=== PATIENT | male | born 1945 | race Caucasian/White ===

== ENCOUNTER → 2017-06-12 | Outpatient (CLI) | payer BC ==
[~2017-06-12] VITALS: Ht 193 cm; Wt 152.7 kg
[~2017-06-12] MED LIST: COUMADIN 5MG5 MG/TAB PO; COUMADIN 77.5 MG/TAB PO; COZAAR 50MG50 MG/TAB PO; DIOVAN; FLOMAX 0.40.4 MG/CAP PO; FOLIC ACID 40400 MCG PO; IRON PO; LASIX 40MG TABL40 MG PO; MICARDIS80 MG PO; NORVASC 10MG10 MG PO; ULTRAM 50MG TAB50 MG PO; VIT D PO; VITAMINC1000TA PO
[2017-06-12 12:08] VITALS: BP 149/90; PULSE 83
== END ==
LOC: COL.RAD 11:33
DX: M54.5 Low back pain (principal); G89.29 Other chronic pain
CPT/HCPCS: J3301

== ENCOUNTER → 2018-01-29 | Outpatient (CLI) | payer BC ==
[~2018-01-29] VITALS: Ht 193 cm; Wt 153.0 kg
[~2018-01-29] MED LIST changes: +FLEXERIL 1010 MG/TAB PO
[2018-01-29 13:47] VITALS: BP 154/79; PULSE 83
[2018-01-29 15:20] VITALS: BP 156/92; PULSE 80
== END ==
LOC: COL.RAD 13:15
DX: M54.5 Low back pain (principal); G89.29 Other chronic pain
CPT/HCPCS: J3301

== ENCOUNTER → 2018-06-17 | Outpatient (CLI) | payer BC | LOC: COL.RAD 11:27 | DX: I75.022 Atheroembolism of left lower extremity (principal); I74.3 Embolism and thrombosis of arteries of the lower extremities; Z96.643 Presence of artificial hip joint, bilateral; Z96.652 Presence of left artificial knee joint; Z98.890 Other specified postprocedural states | CPT/HCPCS: Q9967 ==

== ENCOUNTER 2018-07-26 06:29 | Day surgery (SDC) | payer BC ==
[~2018-07-26] VITALS: Ht 193 cm; Wt 163.1 kg
[~2018-07-26 06:29] MED LIST changes: -FOLIC ACID 40400 MCG PO; +FOLIC ACID800 MCG PO; -IRON PO; +IRON TABLETS325 MG PO; -VIT D PO; +VITAMIND3 5000 PO
[2018-07-26 07:22] VITALS: BP 134/79; PULSE 60; TEMP 97.8
[2018-07-26 07:24] LABS: HEMATOCRIT 42.7 % (42.0-52.0); HEMOGLOBIN 13.9 g/dl (13.5-18.0); MEAN CELL VOLUME 93 fl (80.0-100.0); MEAN CORPUSCULAR HEMOGLOBIN 30 pg (27.0-31.0); MEAN CORPUSCULAR HGB CONC 33 g/dl (33.0-37.0); MEAN PLATELET VOLUME 9.5 fl (7.4-10.4); PLATELET COUNT 205 K/mm3 (130-400); RED BLOOD COUNT 4.58 M/mm3 (4.20-5.60); REDCELL DISTRIBUTION WIDTH-CV 14.8 % (11.5-14.5)
[2018-07-26 07:32] LABS: INR 2.9 (0.8-3.0); PROTHROMBIN TIME 33.4 SECONDS (9.7-12.8)
[2018-07-26 07:38] LABS: CALCIUM 8.9 mg/dL (8.4-10.2); CREATININE, serum 1.7 mg/dL (0.66-1.25); POTASSIUM 4.5 mmol/L (3.4-5.0)
[2018-07-26] MEDS ORDERED: VITAMIN B COMPL1 SGL PO (07:49)
[2018-07-26] MEDS ORDERED: MASON NATURAL1200 MG PO (07:52)
[2018-07-26] MEDS ORDERED: ZYLOPRIM 300MG300 MG PO (07:55)
[2018-07-26] MEDS ORDERED: LASIX 40MG TABL40 MG PO (07:56)
[2018-07-26] MEDS ORDERED: BETAPACE 80MG80 MG PO (07:56)
[2018-07-26 08:45] VITALS: BP 121/74; PULSE 72
[2018-07-26 09:00] VITALS: BP 131/82; PULSE 74
[2018-07-26 09:15] VITALS: BP 126/75; PULSE 75
[2018-07-26 09:30] VITALS: BP 126/70; PULSE 78
[2018-07-26 09:45] VITALS: BP 136/78; PULSE 77
--- NOTE | 2018-07-26 10:00 | NUR ---
Discharge instructions given to pt.Pt verbalizes understanding.INT removed,catheter tip intact.
--- NOTE | 2018-07-26 10:11 | NUR ---
Pt escorted out by this nurse.
== END 2018-07-26 10:14 | disposition home or self-care (01) ==
LOC: COL.CAR 06:29
PROVIDERS: Internal Medicine Cardiovascular Disease
DX: I48.0 Paroxysmal atrial fibrillation (principal); I10 Essential (primary) hypertension; Z79.01 Long term (current) use of anticoagulants; Z79.899 Other long term (current) drug therapy; M10.9 Gout, unspecified; K21.9 Gastro-esophageal reflux disease without esophagitis; Z86.718 Personal history of other venous thrombosis and embolism; C44.90 Unspecified malignant neoplasm of skin, unspecified; E66.01 Morbid (severe) obesity due to excess calories; G47.33 Obstructive sleep apnea (adult) (pediatric); D69.6 Thrombocytopenia, unspecified; M43.07 Spondylolysis, lumbosacral region
CPT/HCPCS: J2704; J7120

== ENCOUNTER → 2020-06-14 | Outpatient (CLI) | payer BC ==
[~2020-06-14] VITALS: Ht 193 cm; Wt 150.6 kg
[~2020-06-14] MED LIST changes: +BETAPACE 80MG80 MG PO; +MASON NATURAL1200 MG PO; +VITAMIN B COMPL1 SGL PO; +ZYLOPRIM 300MG300 MG PO
[2020-06-14 13:33] VITALS: BP 156/80; PULSE 64
[2020-06-14 13:42] LABS: INR 1.2 (0.8-3.0); PROTHROMBIN TIME 13.1 SECONDS (9.7-12.8)
[2020-06-14 14:34] VITALS: BP 150/83; PULSE 62
== END ==
LOC: COL.RAD 13:08
PROVIDERS: Radiology Diagnostic Radiology
DX: M54.16 Radiculopathy, lumbar region (principal)
CPT/HCPCS: J3301

== ENCOUNTER 2020-12-06 12:45 | Outpatient (RCR) | payer BC ==
[2020-12-15] MEDS ORDERED: DOXYCYCLINE 10100 MG PO (08:54)
== END 2021-03-03 ==
LOC: WSPT
DX: M48.061 Spinal stenosis, lumbar region without neurogenic claudication (principal)

== ENCOUNTER 2020-12-13 16:11 | Inpatient (IN) | payer BC, MEDICARE ==
[~2020-12-13] VITALS: Ht 190.5 cm; Wt 145.5 kg
[2020-12-13 17:11] LABS: BASO # 0.1 (0.0-0.2); BASO % 0.4 % (0.0-2.0); EOS # 0.2 (0.0-0.7); GRAN # 9.6 (1.4-6.5); GRAN % 79.8 % (42.2-75.2); HEMATOCRIT 36.2 % (42.0-52.0); HEMOGLOBIN 12.1 g/dl (13.5-18.0); LYMPH # 0.8 (1.2-3.4); LYMPH % 6.9 % (20.0-51.0); MEAN CELL VOLUME 94 fl (80.0-100.0); MEAN CORPUSCULAR HEMOGLOBIN 32 pg (27.0-31.0); MEAN CORPUSCULAR HGB CONC 33 g/dl (33.0-37.0); MEAN PLATELET VOLUME 10.2 fl (7.4-10.4); MONO # 1.2 (0.1-0.6); PLATELET COUNT 252 K/mm3 (130-400); RED BLOOD COUNT 3.84 M/mm3 (4.20-5.60); REDCELL DISTRIBUTION WIDTH-CV 13.6 % (11.5-14.5)
[2020-12-13 17:23] LABS: ALBUMIN 3.6 gm/dL (3.5-5.0); BILIRUBIN,TOTAL 1.3 mg/dL (0.0-1.0); CALCIUM 8.7 mg/dL (8.4-10.2); CREATININE, serum 1.58 (0.66-1.25); POTASSIUM 4.8 mmol/L (3.4-5.0); TOTAL PROTEIN 7.6 gm/dL (6.4-8.2)
[2020-12-13 21:30] VITALS: BP 143/62; PULSE 63; TEMP 98.5
--- NOTE | 2020-12-13 22:00 | NUR ---
Vancomycin Initial Dosing Pharmacy Note Ordering provider: Howie Ledbetter MD 75 YO M Indication/duration: SSTI (5 DAYS) GOAL: 10-20 HX: NONE IDENTIFIED BMI:40.1 WT: 145.5 KG ADJBW: 109 KG SCR: 1.58 ADJBW ESTCRCL ~ 63 ML/MIN T 1/2 ~ 12H TMAX: 98.5 WBC: 12 LA: WNL CRP: 25.3 Micro - pending Rt foot XR reporting soft tissue swelling, without bone destruction Rt Knee XR reporting severe tricompartment osteoarthritis w/ joint effusion Pt received 1.5 gm (~10 mg/kg) x1 in ED on 12/13 @~1800. Due to suboptimal loading dose, will start maintenance dosing early, will initiate a maintenance dose of 1.5 gm q18h. Will monitor closely as pt is unlikely to follow population based kinetics and is at high risk for accumulation 2/2 elevated BMI. Will follow renal function, micro, and abx plan for need to adjust therapy. Thank you for this dosing consult!
--- NOTE | 2020-12-13 22:08 | NUR ---
Vancomycin Initial Dosing Pharmacy Note Ordering provider: Howie Ledbetter MD 75 yo M Indication/duration: SSTI (5 days) GOAL: 10-20 HX: NONE IDENTIFIED BMI: 40.1 WT: 145.5 KG ADJBW: 109 KG SCR: 1.58 ADJBW EST CRCL~ 63 ML/MIN T 1/2 ~ 12 H TMAX: 98.5 WBC: 12 LA:WNL CRP: 25.3 MICRO - PENDING R FOOT XR REPORTING SOFT TISSUE SWELLING, WITHOUT BONE DESTRUCTION R KNEE XR REPORTING SEVERE TRICOMPARTMENT OSTEOARTHRITIS W/JOINT EFFUSION PT RECEIVED 1.5 GM (~10 MG/KG) IN ED ON 12/13 @ ~1800. DUE TO SUB-OPTIMAL LOADING DOSE WILL START MAINTENANCE DOSE EARLY, WILL START A MAINTENANCE DOSE OF 1.5 GM Q18H. WILL FOLLOW CLOSELY PT UNLIKELY TO FOLLOW POPULATION BASED KINETICS AND AT HIGH RISK FOR ACCUMULATION 2/2 TO ELEVATED BMI. WILL FOLLOW RENAL FUCNTION, MICRO, AND CARE PLAN FOR NEED TO ADJUST THERAPY. THANK YOU FOR THIS DOSING CONSULT!
--- NOTE | 2020-12-13 23:25 | NUR ---
PATIENT WAS RECEIVED FROM ED ON A CART ON RA.ASSESSMENT DONE ,ORIENTATION DONE.DENIES PAIN.NO OTHER NEEDS AT THIS TIME.
[2020-12-13 23:41] VITALS: BP 135/62; PULSE 65; TEMP 98.4
[2020-12-14 04:24] VITALS: BP 136/60; PULSE 68; TEMP 98.1
--- NOTE | 2020-12-14 05:10 | NUR ---
PATIENT HAD A RESTFUL NIGHT.DENIES PAIN.NO OTHER NEEDS AT THIS TIME.
[2020-12-14 06:58] LABS: INR 1.3 (0.8-3.0); PROTHROMBIN TIME 14.7 SECONDS (9.7-12.8)
--- NOTE | 2020-12-14 07:15 | NUR ---
Irvin PAGE, notified of consult.
[2020-12-14 08:55] VITALS: BP 140/67; PULSE 67; TEMP 98.1
[2020-12-14 11:33] VITALS: BP 137/63; PULSE 63; TEMP 98.4
--- NOTE | 2020-12-14 11:56 | NUR ---
Patient alert and oriented, answers questions appropriately. See assessment. BLE with 2-3+ edema noted, pulses weak but palpable. Slight redness noted to RLE. ROM active to BLE. FWB. Leg exercises reviewed with patient. Uses cane for ambulation. No c/o at this time.
--- NOTE | 2020-12-14 12:50 | NUR ---
First visit from the clinical data coordinator. prayed with patient. No other needs right now.
[2020-12-14 16:55] VITALS: BP 148/66; PULSE 72; TEMP 98.7
--- NOTE | 2020-12-14 17:13 | NUR ---
Chili Pepper Grinder met with patient to discuss discharge planning. Patient's , Dior (ph#[phone]) is at bedside. Patient [place] with his and sees Dr. Carrington for primary care. Patient obtains medications from [facility] in with no difficulties. Patient has a cane, walker and CPAP at home. Patient states he is very independent and plans to return home upon discharge. SW reviewed PT recommendation for Home Health. Patient declined both HH services and outpatient therapy at this time. Patient does not have Advance Directives and was not interested in completing DPOA-HC at this time. Discharge Plan: Home
[2020-12-14 20:12] VITALS: BP 150/63; PULSE 94; TEMP 97.6
[2020-12-14 23:49] VITALS: BP 124/54; PULSE 63; TEMP 97.6
--- NOTE | 2020-12-14 23:59 | NUR ---
Patient assessed around 2129. Alert and oriented x 4, and able to make needs known. Denies having pain and discomfort at this time. Peripheral IV to left forearm. Denies having SOB and dyspnea. LS CTA. Respirations even and unlabored. HRR. Telemetry in place. Capillary refill less than 3 seconds. Non-tenting skin turgor. BSAx4. Abdomen soft and non-tender. 3+ edema BLE. Redness to RLE is resolved. SCDs to BLE. Refused Coumadin, stating that he takes it in the morning and does not want to be off schedule. Assisted to bathroom with one assist with use of walker. Gait slow and steady. Voices no questions, needs, or concerns at this time. Resting in bed with call light within reach.
[2020-12-15 04:09] VITALS: BP 140/60; PULSE 62; TEMP 98
--- NOTE | 2020-12-15 05:17 | NUR ---
Patient has been resting in bed with call light within reach. Has denied having pain and discomfort. Has been walking to bathroom with one person stand by assist. Voices no questions, needs, or concerns at this time. Resting in bed with call light within reach.
[2020-12-15 07:37] VITALS: BP 112/55; PULSE 64; TEMP 97.6
[2020-12-15 08:12] LABS: BASO % 0.4 % (0.0-2.0); EOS # 0.7 (0.0-0.7); EOS % 6.5 % (0-4.0); GRAN # 7.5 (1.4-6.5); HEMOGLOBIN 10.8 g/dl (13.5-18.0); LYMPH # 0.9 (1.2-3.4); LYMPH % 9.2 % (20.0-51.0); MEAN CELL VOLUME 97 fl (80.0-100.0); MEAN CORPUSCULAR HEMOGLOBIN 31 pg (27.0-31.0); MEAN CORPUSCULAR HGB CONC 32 g/dl (33.0-37.0); MEAN PLATELET VOLUME 9.8 fl (7.4-10.4); MONO % 9.7 % (1.7-9.3); PLATELET COUNT 255 K/mm3 (130-400); RED BLOOD COUNT 3.47 M/mm3 (4.20-5.60); REDCELL DISTRIBUTION WIDTH-CV 13.8 % (11.5-14.5)
[2020-12-15 08:13] LABS: HEMATOCRIT 33.6 % (42.0-52.0)
[2020-12-15 08:24] LABS: CALCIUM 8.8 mg/dL (8.4-10.2); CREATININE, serum 1.53 (0.66-1.25); POTASSIUM 4.5 mmol/L (3.4-5.0)
[2020-12-15 08:35] LABS: C-REACTIVE PROTEIN 19.3 mg/dL (0.0-0.9)
[2020-12-15] MEDS ORDERED: DOXYCYCLINE 10100 MG PO (08:54)
--- NOTE | 2020-12-15 09:30 | NUR ---
Patient alert and oriented, answers questions appropriately. See assessment. BLE with 2+ edema noted, no redness or drainage. FWB with walker/cane. No c/o pain or discomfort.
--- NOTE | 2020-12-15 10:43 | NUR ---
Operations Engineer attended clinical rounds with the team and patient is ready for discharge today. Hospitalist reviewed Home Health services, however patient again declined. Patient states he feels ready to get back home. SW contacted Joselyn Operations Engineer at Dr. Carrington's office and advised that patient declined HH services, despite the fact that they were recommended. No additional needs at this time.
== END 2020-12-15 11:09 | disposition home or self-care (01) | DRG 603 ==
LOC: COL.ER 16:11 → SURG 19:28
PROVIDERS: Family Medicine; Physician Assistant; Student in an Organized Health Care Education/Training Program; ADMIT Student in an Organized Health Care Education/Training Program
DX: L03.115 Cellulitis of right lower limb (principal); T84.018A Broken internal joint prosthesis, other site, initial encounter; Z68.41 Body mass index [BMI] 40.0-44.9, adult; D63.1 Anemia in chronic kidney disease; E29.1 Testicular hypofunction; E66.9 Obesity, unspecified; G47.33 Obstructive sleep apnea (adult) (pediatric); I48.91 Unspecified atrial fibrillation; I87.2 Venous insufficiency (chronic) (peripheral); I12.9 Hypertensive chronic kidney disease with stage 1 through stage 4 chronic kidney disease, or unspecified chronic kidney disease; M10.9 Gout, unspecified; M17.11 Unilateral primary osteoarthritis, right knee; M25.461 Effusion, right knee; N18.30 Chronic kidney disease, stage 3 unspecified; Y83.9 Surgical procedure, unspecified as the cause of abnormal reaction of the patient, or of later complication, without mention of misadventure at the time of the procedure; Z79.01 Long term (current) use of anticoagulants; Z96.652 Presence of left artificial knee joint; Z96.643 Presence of artificial hip joint, bilateral; Z86.718 Personal history of other venous thrombosis and embolism; Z87.891 Personal history of nicotine dependence; Z88.8 Allergy status to other drugs, medicaments and biological substances
CPT/HCPCS: OP; 99223-AI; 99233-AI; 99239; G0378; J2543; J3370; J7050; J7120

== ENCOUNTER → 2021-07-05 | Outpatient (CLI) | payer BC ==
[~2021-07-05] MED LIST changes: +DOXYCYCLINE 10100 MG PO
== END ==
LOC: COL.RAD 13:44
DX: M53.3 Sacrococcygeal disorders, not elsewhere classified (principal)
CPT/HCPCS: G0260; J3301

== ENCOUNTER → 2021-10-18 | Outpatient (CLI) | payer BC | LOC: MHCPAIN 09:21 | DX: M47.817 Spondylosis without myelopathy or radiculopathy, lumbosacral region (principal); M54.50 Low back pain, unspecified; M53.3 Sacrococcygeal disorders, not elsewhere classified; M41.86 Other forms of scoliosis, lumbar region | CPT/HCPCS: G0463 ==

== ENCOUNTER → 2021-11-10 | Outpatient (CLI) | payer BC | LOC: MHCPAIN 07:37 | DX: M47.817 Spondylosis without myelopathy or radiculopathy, lumbosacral region (principal); M54.50 Low back pain, unspecified; M53.3 Sacrococcygeal disorders, not elsewhere classified ==

== ENCOUNTER → 2021-11-24 | Outpatient (CLI) | payer BC | LOC: MHCPAIN 09:56 | DX: M47.817 Spondylosis without myelopathy or radiculopathy, lumbosacral region (principal); M54.50 Low back pain, unspecified; M53.3 Sacrococcygeal disorders, not elsewhere classified | CPT/HCPCS: G0463 ==

== ENCOUNTER → 2021-12-08 | Outpatient (CLI) | payer BC | LOC: MHCPAIN 07:29 | DX: M47.817 Spondylosis without myelopathy or radiculopathy, lumbosacral region (principal); M54.50 Low back pain, unspecified; M53.3 Sacrococcygeal disorders, not elsewhere classified | CPT/HCPCS: G0463; J1100; J2250; J3010 ==

== ENCOUNTER → 2022-02-07 | Outpatient (CLI) | payer BC | LOC: MHCPAIN 08:52 | DX: M47.897 Other spondylosis, lumbosacral region (principal); M54.50 Low back pain, unspecified; M53.3 Sacrococcygeal disorders, not elsewhere classified | CPT/HCPCS: G0463 ==

== ENCOUNTER → 2022-04-13 | Outpatient (CLI) | payer BC | LOC: COL.RAD 12:30 | DX: M75.121 Complete rotator cuff tear or rupture of right shoulder, not specified as traumatic (principal) ==

== ENCOUNTER → 2023-06-20 | Outpatient (CLI) | payer MEDICARE, OTHER | LOC: MHCPAIN 08:46 | DX: M47.896 Other spondylosis, lumbar region (principal); M54.16 Radiculopathy, lumbar region | CPT/HCPCS: G0463 ==

== ENCOUNTER → 2023-09-12 | Outpatient (CLI) | payer MEDICARE, OTHER | LOC: MHCPAIN 08:30 | DX: M47.897 Other spondylosis, lumbosacral region (principal); M54.16 Radiculopathy, lumbar region; M53.3 Sacrococcygeal disorders, not elsewhere classified; M41.86 Other forms of scoliosis, lumbar region | CPT/HCPCS: G0463 ==

== ENCOUNTER → 2023-10-15 | Outpatient (CLI) | payer MEDICARE, OTHER | LOC: MHCPAIN 08:26 | DX: M48.062 Spinal stenosis, lumbar region with neurogenic claudication (principal); M51.36 Other intervertebral disc degeneration, lumbar region | CPT/HCPCS: G0463 ==

== ENCOUNTER → 2023-11-01 | Outpatient (CLI) | payer MEDICARE, OTHER ==
[~2023-11-01] MED LIST changes: +Iohexol 300 - 10 ML VIAL ONE; +Lidocaine PF 2% (20 MG/ML) 2 ML VIAL ONE
== END ==
LOC: MHCPAIN 10:24
DX: M54.16 Radiculopathy, lumbar region (principal)
CPT/HCPCS: J1100; Q9967